=== PATIENT | male | born 1985 | race African-American/Black ===

== ENCOUNTER 2023-07-24 14:39 | Emergency (ER) | payer MEDICAID, SELFPAY ==
--- NOTE | 2023-07-24 15:18 | ED.GENADULT ---
HPI - General Adult General Chief complaint: Skin/Abscess/Foreign Body Stated complaint: itchy bumps Time Seen by Provider: 07/24/23 19:00 Source: patient and program manager slp ([place]ian Creole) Mode of arrival: ambulatory History of Present Illness HPI narrative: 38-year-old male comes in with rash to lower abdomen as well as bilateral thighs and some areas on his upper extremities that are patch like, itchy and not associated with any fever, chills, erythema or swelling. Related Data Allergies Allergy/AdvReac Type Severity Reaction Status Date / Time No Known Allergies Allergy Verified 07/24/23 15:21 Review of Systems Review of Systems: Pertinent positives and negatives as stated in HPI [facility] Past Medical History Source: nursing notes reviewed Social History Social History Advance Directives: No Advance Directives Information Provided: No Physical Exam ED Vital Signs: Vital Signs - 24 hr 07/24/23 15:19 Temperature 97.5 F Pulse Rate 68 Respiratory Rate 18 Pulse Oximetry 98 BMI result Body Mass Index 25.3 VITAL SIGNS: Reviewed. GENERAL: Well developed, well nourished, in no acute distress. HEAD: Normocephalic/atraumatic EYES: PERRLA, EOMI EARS: Ext canals without abnormality NOSE: Nares patent bilateral OROPHARYNX: no oral lesions noted, posterior pharynx clear NECK: Supple, no adenopathy LUNGS: Normal breath sounds. No adventitious sounds or accessory muscle use. SpO2<98> CARDIOVASCULAR: Regular rate and rhythm without noted murmurs ABDOMEN: Soft, non-tender, non-distended with bowel sounds. MUSCULOSKELETAL: No tenderness, deformities, or effusions noted on gross inspection. EXTREMITIES: No cyanosis, clubbing or edema. SKIN: Inspection of the skin reveals patchy dried area was stigmata of scratchy NEUROLOGIC: Alert and oriented x 4. Strength and sensation to light touch were grossly intact x 4. Course Course Course Narrative: RME performed by Domitila Davis PA-C. Patient is a 38 year old assigned male at presenting to the emergency department with bilateral upper leg rash. Labs ordered. Patient placed back in the waiting room pending room availability and results. Medical Decision Making Medical Decision Making MDM Narrative: 38-year-old male with history and clinical presentation most consistent with significant eczema. Patient given strict instructions via the patient Creole program manager slp in terms of temperature of showers, frequency of showers, application of Vaseline. I reviewed all investigations and hematologic indices are negative for leukocytosis or left shift, there is no anemia or thrombocytopenia. ESR/CRP are within normal limits. Chemistry Anesthesia grossly within normal limits without evidence of LAISHA her electrolytes/liver enzymes derangements. Viral testing is negative for influenza/RSV/COVID Differential Diagnosis Differential Diagnoses: The differential diagnosis associated with the presentation includes Please see the discussion above Admission/Observation Consideration of admission/observation: Escalation of care including admission/observation considered Please see the discussion above Lab Data MDM Lab Attestation statement: I reviewed the patient's lab results. Please see the discussion above 07/24/23 16:32 07/24/23 16:32 Labs: Lab Results 07/24/23 Range/Units 16:32 WBC 4.5 L (4.8-10.8) X10*3/uL RBC 4.94 (4.60-5.80) X10*6/uL Hgb 14.7 (14.0-18.0) g/dl Hct 44.5 (42.0-52.0) % MCV 90.1 (80.0-98.0) fL MCH 29.8 (27.0-33.0) pg MCHC 33.0 (31.0-36.0) g/dl RDW 13.1 (11.0-16.0) % Plt Count 201 (160-400) X10*3/uL MPV 11.5 (9.4-12.4) fL Immature Gran % (Auto) 0.2 (0.0-0.4) % Neut % (Auto) 42.7 L (45-73) % Lymph % (Auto) 43.0 H (20-40) % [place] % (Auto) 10.8 (2-11) % Eos % (Auto) 2.2 (0-4) % Baso % (Auto) 1.1 (0-2) % Lymph # (Auto) 2.0 (1.2-4.9) X10*3/uL [place] # (Auto) 0.5 (0.1-1.2) X10*3/uL Eos # (Auto) 0.1 (0.0-0.4) X10*3/uL Baso # (Auto) 0.1 (0.0-0.2) X10*3/uL Abs Immat Gran (auto) 0.01 (0.00-0.03) X10*3/uL Absolute Neuts (auto) 1.9 L (2.0-8.3) x10*3/uL Absolute Nucleated RBC 0.000 (0.0-0.012) X10*3/uL Nucleated RBC % (auto) 0.0 (0.0-0.2) /100WBC ESR 4 (0-15) MM/HR Sodium 141 (135-145) mmol/L Potassium 4.0 (3.3-5.1) mmol/L Chloride 108 (96-108) mmol/L Carbon Dioxide 28 (22-29) mmol/L Anion Gap 9 L (12-20) BUN 8 L (9-16) mg/dL Creatinine 0.95 (0.5-1.4) mg/dL Estim Creat Clear Calc 99.5 Estimated GFR > 60 Random Glucose 89 (60-115) mg/dL Calcium 9.5 (8.4-10.2) mg/dL Magnesium 2.1 (1.6-2.6) mg/dL Total Bilirubin 0.3 (0.0-1.0) mg/dL AST 17 (5-37) U/L ALT 14 (0-40) U/L Alkaline Phosphatase 75 (39-117) U/L C-Reactive Protein < 0.10 (< or = 0.50) mg/dL Total Protein 7.7 (6.5-8.0) g/dL Albumin 4.2 (3.5-5.0) g/dL Influenza Type A (PCR) NEGATIVE (Negative) Influenza Type B (PCR) NEGATIVE (Negative) RSV RNA Qual (PCR) NEGATIVE (Negative) SARS-CoV-2 RNA (RT-PCR) NEGATIVE (Negative) Discharge Plan Discharge Clinical Impression: Eczema of both upper extremities Patient Disposition: Home, Self-Care Instructions: Dyshidrotic Eczema (ED), Dermatitis (ED) Additional Instructions: 1. Do not take a hot shower, decrease the frequency of showers as both of these will increase your symptoms. 2. Always apply generous amounts of Vaseline after showering and each day. 3. Please establish care with a primary care physician at your earliest convenience. Return to the ER for any worsening symptoms.
[2023-07-24 15:19] VITALS: PULSE 68; RESP 18; TEMP 36.4; O2SAT 98; BMI 25.3
[2023-07-24 16:36] LABS: MANUAL DIFF FLAG NO
[2023-07-24 16:39] LABS: Basophils Absolute Auto 0.1 X10*3/uL (0.0-0.2); Basophils Percent Auto 1.1 % (0-2); Eosinophils Absolute Auto 0.1 X10*3/uL (0.0-0.4); Eosinophils Percent Auto 2.2 % (0-4); Hematocrit 44.5 % (42.0-52.0); Hemoglobin 14.7 g/dl (14.0-18.0); Imm Gran Abs Auto 0.01 X10*3/uL (0.00-0.03); Imm Gran Pct Auto 0.2 % (0.0-0.4); Mean Corpuscular Hemoglobin 29.8 pg (27.0-33.0); Mean Corpuscular Volume 90.1 fL (80.0-98.0); Mean Platelet Volume 11.5 fL (9.4-12.4); Monocytes Absolute Auto 0.5 X10*3/uL (0.1-1.2); Monocytes Percent Auto 10.8 % (2-11); Neutrophils Absolute Auto 1.9 x10*3/uL (2.0-8.3); Neutrophils Percent Auto 42.7 % (45-73); Platelet Count 201 X10*3/uL (160-400); Red Blood Count 4.94 X10*6/uL (4.60-5.80); Red Cell Distribution Width 13.1 % (11.0-16.0); White Blood Count 4.5 X10*3/uL (4.8-10.8)
[2023-07-24 16:55] LABS: Alanine Aminotransferase 14 U/L (0-40); Albumin Level 4.2 g/dL (3.5-5.0); Alkaline Phosphatase 75 U/L (39-117); Anion Gap 9 (12-20); Aspartate Amino Transferase 17 U/L (5-37); Bilirubin Total 0.3 mg/dL (0.0-1.0); Blood Urea Nitrogen 8 mg/dL (9-16); C Reactive Protein < 0.10 mg/dL (< or = 0.50); Calcium 9.5 mg/dL (8.4-10.2); Carbon Dioxide 28 mmol/L (22-29); Chloride 108 mmol/L (96-108); Creatinine Clr Calc Pharmacy 99.5; Estimated Glomerular Filt Rate > 60; Glucose Random 89 mg/dL (60-115); Magnesium 2.1 mg/dL (1.6-2.6); Sodium 141 mmol/L (135-145); Total Protein 7.7 g/dL (6.5-8.0)
[2023-07-24 17:15] LABS: Erythrocyte Sedimentation Rate 4 MM/HR (0-15)
[2023-07-24 17:30] LABS: Influenza A PCR NEGATIVE (Negative); Influenza B PCR NEGATIVE (Negative); Resp Syncy Virus RNA Qual PCR NEGATIVE (Negative); SARS COV2 PCR INHOUSE NEGATIVE (Negative)
--- NOTE | 2023-07-24 19:28 | PC.NURSE ---
MD Pearson to tim for primary eval via video interpeter. Pt cleared for dc home, awaiting paperwork.
== END 2023-07-24 19:49 | disposition home or self-care (01) ==
PROVIDERS: Physician Assistant Medical; Emergency Provider Student in an Organized Health Care Education/Training Program
DX: L30.9 Dermatitis, unspecified (principal); Z20.822 Contact with and (suspected) exposure to COVID-19; Z20.828 Contact with and (suspected) exposure to other viral communicable diseases; Z79.899 Other long term (current) drug therapy
CPT/HCPCS: 0241U; 80053; 83735; 85025; 85652; 86140; 99282; 99283